=== PATIENT | female | born 1995 | race Caucasian/White ===

== ENCOUNTER 2021-12-20 07:55 | Emergency (ER) | payer MEDICAID ==
[~2021-12-20] VITALS: Ht 162.6 cm; Wt 46.0 kg
[2021-12-20] MEDS ORDERED: SODIUM CHLORIDE 0.9% 1,000 ML IV ONE (08:15)
[2021-12-20] MEDS ORDERED: CHLORDIAZEPOXIDE 25MG CAPSULE PO ONE (08:15)
[2021-12-20 09:16] VITALS: BP 142/86
== END 2021-12-20 09:18 | disposition home or self-care (01) ==
LOC: ER 08:01
DX: F15.188 Other stimulant abuse with other stimulant-induced disorder (principal); Z59.00 Homelessness unspecified; F10.10 Alcohol abuse, uncomplicated; Y90.9 Presence of alcohol in blood, level not specified; R25.3 Fasciculation; R03.0 Elevated blood-pressure reading, without diagnosis of hypertension
CPT/HCPCS: 99283; J7030